=== PATIENT | male | born 1990 | race Caucasian/White ===

== ENCOUNTER 2020-10-19 21:11 | Emergency (ER) | payer OTHER ==
[~2020-10-19] VITALS: Ht 185.4 cm; Wt 65.9 kg
--- NOTE | 2020-10-19 21:33 | NUR ---
PT PRESENTS TO THE ER FOR FLANK PAIN, PT STATES HE HAD SOME BLOOD IN HIS URINE WELL, MD AT BEDSIDE TO DISCUSS POC
[2020-10-19 21:54] LABS: MICROSCOPIC NOT IND
[2020-10-19 21:58] LABS: BASOPHILS % (AUTO) 0 % (0-1); EOSINOPHILS % (AUTO) 2 % (1-7); LYMPHOCYTES % (AUTO) 27 % (22-44); MEAN CORPUSCULAR HEMOGLOBIN 32.7 pg (27.5-34.5); MEAN CORPUSCULAR HGB CONC 34.2 g/dL (33.2-36.2); MEAN PLATELET VOLUME 7.3 fL (7.4-10.4); MONOCYTES % (AUTO) 4 % (2-9); NEUTROPHILS % (AUTO) 68 % (42-75); PLATELET COUNT 323 x10^3/uL (130-400); RED BLOOD COUNT 4.68 x10^6/uL (4.38-5.82); RED CELL DISTRIBUTION WIDTH 12.4 % (9.4-14.8)
[2020-10-19 22:05] LABS: ALANINE AMINOTRANSFERASE 21 U/L (12-78); ALBUMIN 4.3 g/dL (3.4-5.0); ANION GAP 7 mmol/L (5-15); CALCIUM 8.4 mg/dL (8.5-10.1); CHLORIDE 107 mmol/L (98-107); CREATININE 0.85 mg/dL (0.7-1.3)
[2020-10-19 22:07] LABS: ALKALINE PHOSPHATASE 52 U/L (45-117); BILIRUBIN,TOTAL 0.5 mg/dL (0.2-1.0); TOTAL PROTEIN 7.8 g/dL (6.4-8.2)
[2020-10-19 23:11] VITALS: BP 135/74
== END 2020-10-19 23:14 | disposition home or self-care (01) ==
LOC: ED 22:58
DX: R31.0 Gross hematuria (principal); R10.9 Unspecified abdominal pain
CPT/HCPCS: 36415; 74176; 80053; 81003; 85025; 87491; 87591; 99284